=== PATIENT | male | born 1995 | race Two or more races ===

== ENCOUNTER 2019-07-08 15:19 | Emergency (ER) | payer BC ==
--- NOTE | 2019-07-08 16:28 | EDM.PDOC ---
ED HPI GENERAL MEDICAL PROBLEM - General Chief Complaint: General Stated Complaint: NUMBNESS ON LEFT SIDE OF FACE Time Seen by Provider: 07/08/19 15:44 Source of Information: Reports: Patient, RN Notes Reviewed History Limitations: Reports: No Limitations - History of Present Illness INITIAL COMMENTS - FREE TEXT/NARRATIVE: Patient is a 23-year-old male who presents to the ED for the evaluation of left- sided facial numbness. He notes that he woke up this morning, and appreciated that the left side of his face was not working normally. He states he went to brush his teeth, and the toothpaste just fell out of the left side of his mouth. He notes that it is hard to keep his left eye closed, he states that when he blinks his left eye does not blink. He has an uneven smile when he smiles. He is not had any issues like this in the past. He is not having any pain to this area. He is not having any other complaints like chest pain, shortness of breath, sore throat or headache. He is not exhibiting any signs of confusion as well. His girlfriend states that he is acting normal for himself otherwise. Left Jaw Pain Score (Numeric/FACES): 3 - Related Data Allergies Allergy/AdvReac Type Severity Reaction Status Date / Time No Known Allergies Allergy Verified 07/08/19 15:35 Home Meds: Home Meds predniSONE [Prednisone] 20 mg PO ASDIRECTED #23 tablet 07/08/19 [Rx] Past Medical History - Past Health History Medical/Surgical History: Denies Medical/Surgical History - Past Surgical History Musculoskeletal Surgical History: Reports: Other (See Below) Other Musculoskeletal Surgeries/Procedures:: hand surgery Social & Family History - Tobacco Use Smoking Status *Q: Never Smoker - Caffeine Use Caffeine Use: Reports: Coffee - Recreational Drug Use Recreational Drug Use: No ED ROS GENERAL - Review of Systems Review Of Systems: See Below Constitutional: Denies: Fever, Chills HEENT: Denies: Dental Pain, Ear Pain, Eye Pain, Rhinitis Respiratory: Denies: Shortness of Breath, Cough Cardiovascular: Denies: Chest Pain GI/Abdominal: Denies: Abdominal Pain, Nausea, Vomiting Neurological: Reports: Other (left sided facial numbness). Denies: Confusion, Headache, Pre-Existing Deficit ED EXAM, GENERAL - Physical Exam Exam: See Below Exam Limited By: No Limitations General Appearance: Alert, WD/WN, No Apparent Distress Eye Exam: Left Eye: Other (pt left eye does not blink when he blinks), Bilateral Eye: EOMI, Normal Inspection, PERRL Ears: Normal External Exam, Normal Canal, Hearing Grossly Normal, Normal TMs Nose: Normal Inspection Throat/Mouth: Normal Inspection, Normal Lips, Normal Teeth, Normal Gums, Normal Oropharynx, Normal Voice, No Airway Compromise Head: Atraumatic, Normocephalic, Other (No forehead wrinkle noted on exam on Left side of face, there is slight facial droop noted to lip when he smiles on the left side of his face as well) Neck: Normal Inspection, Supple, Non-Tender, Full Range of Motion Respiratory/Chest: No Respiratory Distress, Lungs Clear, Normal Breath Sounds, No Accessory Muscle Use, Chest Non-Tender Cardiovascular: Normal Peripheral Pulses, Regular Rate, Rhythm, No Edema, No Murmur Peripheral Pulses: 3+: Radial (L), Radial (R) GI/Abdominal: Normal Bowel Sounds, Soft, Non-Tender, No Distention, No Mass Extremities: Normal Inspection, Normal Capillary Refill Neurological: Alert, Oriented, Normal Cognition, Sensory/Motor Deficit (Left sided facial nerve paralysis. loss of forehead wrinkle, slight facial droop noted when smiling, cannot blink with left eye.) Psychiatric: Normal Affect, Normal Mood Skin Exam: Warm, Dry, Intact, Normal Color, No Rash Course - Vital Signs Last Recorded V/S: Last Vital Signs Temp 96.6 F 07/08/19 15:32 Pulse 68 07/08/19 15:32 Resp 18 07/08/19 15:32 BP 125/79 07/08/19 15:32 Pulse Ox 98 07/08/19 15:32 - Re-Assessments/Exams Free Text/Narrative Re-Assessment/Exam: 07/08/19 16:28 Patient presents to the ED for evaluation of left-sided facial paralysis. I do believe the patient suffering from [place] palsy at this time. Management for this will be outpatient steroids, discharge instructions as documented. Departure - Departure Time of Disposition: 16:28 Disposition: Home, Self-Care 01 Condition: Good Clinical Impression: [place] palsy - Discharge Information *PRESCRIPTION DRUG MONITORING PROGRAM REVIEWED*: No *COPY OF PRESCRIPTION DRUG MONITORING REPORT IN PATIENT FAB: No Prescriptions: predniSONE [Prednisone] 20 mg PO ASDIRECTED #23 tablet Instructions: [place] Palsy, Adult Referrals: PCP,None [Primary Care Provider] - Additional Instructions: You were evaluated in the ER today regarding your left-sided facial numbness/ paralysis. Your symptoms are most likely due to [place] palsy, which is a temporary paralysis of the facial nerve, affecting the left side of your face. Management of this includes a burst of steroids, please take 60 mg days 1 through 5, then decrease by 10 mg daily until you have 1/2 tablet left. You may discard this last half tablet. You will need to buy some artificial tears, or other eye lubrication gel of some sort, and you will need to tape your left eyelid closed at night until you are able to regain movement of the nerve. You may also want to wear sunglasses during the day to help guard your eyes against UV light. Please return to the ER at any time however if your symptoms change or worsen. Sepsis Event Note - Evaluation Sepsis Screening Result: No Definite Risk - Focused Exam Vital Signs: Vital Signs Temp Pulse Resp BP Pulse Ox 07/08/19 15:32 96.6 F 68 18 125/79 98 Date Exam was Performed: 07/08/19 Time Exam was Performed: 16:22
== END 2019-07-08 16:47 | disposition home or self-care (01) ==
LOC: JD.ED 15:19
DX: G51.0 Bell's palsy (principal)
CPT/HCPCS: 99283